=== PATIENT | female | born 1975 | race Caucasian/White ===

== ENCOUNTER 2019-11-21 07:05 | Outpatient (CLI) | payer BC, SELFPAY ==
[2019-11-21 07:34] LABS: Hemoglobin A1C 5.5 % (3.8-5.6)
[2019-11-21 08:02] LABS: Calculated LDL 129 mg/dL; Cholesterol 198 mg/dL (<200); HDL Cholesterol 48 mg/dL (40-60); Triglyceride 106 mg/dL (<150)
== END 2019-11-21 07:25 ==
PROVIDERS: PCP Nurse Practitioner; Visit Provider Nurse Practitioner
DX: Z13.1 Encounter for screening for diabetes mellitus (principal); Z13.6 Encounter for screening for cardiovascular disorders
CPT/HCPCS: 36415; 80061; 83036

== ENCOUNTER 2019-12-12 01:47 | Outpatient (CLI) | payer BC, SELFPAY ==
--- NOTE | 2019-12-12 07:45 | DI.MAMMO_ITS ---
EXAM: MG MAMMO SCREENING CLINICAL HISTORY: screening, Z12.39, FAMILY H/O BREAST CA TECHNIQUE: Bilateral full field digital CC and MLO mammographic images were obtained with 3D tomosyn thesis and utilizing computer aided detection (CAD). COMPARISON: Available for comparison. FINDINGS: Masses/Architectural Distortion: None seen. Microcalcifications: No suspicious pleomorphic-type are seen. Skin Thickening/Nipple Retraction: None. IMPRESSION: 1. No significant interval change with no specific features of malignancy noted. 2. Unless there is more urgent need, screening mammography is recommended, as per [employer] guidelines. ACR BI-RAD Category- 1 Negative Breast Density - Category C - Heterogeneously dense The mammogram demonstrates the patient's breast tissue is dense. Dense breast tissue is very common a nd is not abnormal but dense breast tissue can make it harder to find cancer on a mammogram. Also, de nse breast tissue may increase their breast cancer risk. This information about the result of the [facility] mogram report was provided to the patient to raise their awareness. Use this report when you speak wi th the patient about their risks for breast cancer, which includes their family history. At that time , you may recommend for more screening tests (Ultrasound or MRI) as they might be useful based on the ir risk. A negative radiographic report should not delay biopsy if a dominant or clinically suspicious mass is present. Up to ten percent of cancers are not identified on mammography. A negative report may reinforce clinical impression. Adenosis and dense breasts may obscure an underlying neoplasm. False positive reports average 6 to 10%. Patient will receive a letter notifying them of these results.
== END 2019-12-12 02:07 ==
PROVIDERS: PCP Nurse Practitioner; Visit Provider Nurse Practitioner
DX: Z12.31 Encounter for screening mammogram for malignant neoplasm of breast (principal); Z80.3 Family history of malignant neoplasm of breast
CPT/HCPCS: 77063; 77067

== ENCOUNTER 2020-11-19 10:29 | Outpatient (CLI) | payer BC, SELFPAY ==
[2020-11-21 10:29] LABS: COVID-19 RT-PCR Result Positive (Negative)
== END 2020-11-19 10:49 ==
PROVIDERS: PCP Nurse Practitioner; Visit Provider Nurse Practitioner
DX: Z20.822 Contact with and (suspected) exposure to COVID-19 (principal)
CPT/HCPCS: U0003

== ENCOUNTER 2021-03-29 14:43 | Outpatient (REF) | payer BC, SELFPAY ==
--- NOTE | 2021-03-29 13:45 | PAPFT_PTH ---
PATIENT: Jennifer Doty LOC: [facility] U#:[id number] AGE/SX: 45/F ROOM: RE03/29/[address]: Mckenzie Dsouza : 1975 BED: DIS: 03/29/2021 SPEC #: [id number] RECD: 03/29/21 17:32 STATUS: PATTI AMADA #: [id number] DAMARIS: 03/29/21 13:[address]: Mckenzie Dsouza DEPT: [facility] Cytology RECD BY: Mariluz Ramos ENTERED: 03/29/21 17:33 SP TYPE: PAPFT DESTINY DR: Nicole Gibbons, PhD PRE K SPECIAL EDUCATION TEACHER Tissues: 1 - CX/ENDOCX FOR PAP SMEARS Procedures: PAP THIN PREP/UVM Screening HPV DNA PROBE Comments: [id number]
--- NOTE | 2021-03-29 14:00 | ENDOMET_PTH ---
PATIENT: Jennifer Doty LOC: [facility] U#:[id number] AGE/SX: 45/F ROOM: RE03/29/[address]: Mckenzie Dsouza : 1975 BED: DIS: 03/29/2021 SPEC #: [id number] RECD: 03/29/21 16:23 STATUS: PATTI RESalo #: [id number] DAMARIS: 03/29/21 14:[address]: Mckenzie Dsouza DEPT: Surgical Specimen RECD BY: Mariluz Ramos ENTERED: 03/29/21 16:23 SP TYPE: Endomet OTHR DR: Nicole Gibbosn, PhD QUALITY AUDIT REPRESENTATIVE Tissues: 1 - ENDOMETRIUM BX/DEANN Procedures: GROSS AND MICRO LEVEL 4 Comments: [id number]
== END 2021-03-29 14:44 | disposition home or self-care (01) ==
LOC: LBN 14:43
PROVIDERS: PCP Nurse Practitioner; Visit Provider Obstetrics & Gynecology Gynecology
DX: N93.8 Other specified abnormal uterine and vaginal bleeding (principal); N85.8 Other specified noninflammatory disorders of uterus; Z12.4 Encounter for screening for malignant neoplasm of cervix; Z11.51 Encounter for screening for human papillomavirus (HPV); R87.618 Other abnormal cytological findings on specimens from cervix uteri
CPT/HCPCS: 88142; 88305; 87624

== ENCOUNTER 2021-04-04 03:37 | Outpatient (CLI) | payer BC, SELFPAY ==
--- NOTE | 2021-04-04 08:15 | DI.MAMMO_ITS ---
Exam(s) MAMMO SCREENING EXAM: MAMMO SCREENING CLINICAL HISTORY: screening,Z12.39 TECHNIQUE: Bilateral full field digital CC and MLO mammographic images were obtained with 3D tomosyn thesis and utilizing computer aided detection (CAD). COMPARISON: Available for comparison. FINDINGS: Masses/Architectural Distortion: There is an asymmetry in the inferior right breast on the MLO view w hich is more prominent compared to the prior examination. Microcalcifications: No suspicious pleomorphic-type are seen. Skin Thickening/Nipple Retraction: None. IMPRESSION: 1. Asymmetry in the inferior right breast on the MLO view. 2. This area should be further evaluated with spot compression view. Ultrasound may be indicated at that time. BI-RADS Category 0 - Assessment Incomplete: Need additional imaging evaluation Breast Density - Category C - Heterogeneously dense Breast density category C or D implies that the patient has dense breast tissue. Dense breast tissue is very common and is not abnormal but dense breast tissue can make it harder to find cancer on a ma mmogram. Also, dense breast tissue may increase their breast cancer risk. This information about the result of the mammogram report was provided to the patient to raise their awareness. Use this report when you speak with the patient about their risks for breast cancer, which includes their family hist ory. At that time, you may recommend for more screening tests (Ultrasound or MRI) as they might be us eful based on their risk. A negative radiographic report should not delay biopsy if a dominant or clinically suspicious mass is present. Up to ten percent of cancers are not identified on mammography. A negative report may reinforce clinical impression. Adenosis and dense breasts may obscure an underlying neoplasm. False positive reports average 6 to 10%. Patient will receive a letter notifying them of these results.
== END 2021-04-04 03:57 ==
PROVIDERS: PCP Nurse Practitioner; Visit Provider Nurse Practitioner
DX: Z12.31 Encounter for screening mammogram for malignant neoplasm of breast (principal); R92.8 Other abnormal and inconclusive findings on diagnostic imaging of breast
CPT/HCPCS: 77063; 77067

== ENCOUNTER 2021-04-20 01:32 | Outpatient (CLI) | payer BC, SELFPAY ==
--- NOTE | 2021-04-20 | DI.MAMMO_ITS ---
Exam(s) MG MAMMO SCREEN CALL BACK UNI EXAM: MG MAMMO SCREEN CALL BACK UNI-RIGHT CLINICAL HISTORY: F/U MAMMO, ASYMMETRY INFERIOR RT BREAST. TECHNIQUE: Unilateral spot mammographic images were obtained with 3D tomosynthesis and utilizing com puter aided detection (CAD). . Breast Ultrasound was also performed. COMPARISON: Prior mammograms were reviewed. This additional imaging was performed due to findings described on the recent screening mammogram of 04/04/2021. FINDINGS: Additional mammographic views performed todayrender this area non dissipating but somewhat less emeka rning. Ultrasound performed today reveals no significant findings. Please see that separate report. IMPRESSION: Benign findings. Appropriate follow-up is repeat right breast MAMMOGRAM in 6 months, with earlier imaging if a self de tected breast change is noted.. The patient was informed of these findings and recommendations prior to leaving the department today. BI-RADS Category 3 - 6 month - Probably Benign Finding: Recommend follow-up mammography in 6 months Breast Density - Category B - Scattered areas of fibroglandular density Breast density Category C or D implies that the patient has dense breast tissue. Dense breast tissue can make it harder to find cancer on a mammogram. Dense breast tissue is also associated with an incr eased risk of breast cancer. This information about the result of the mammogram report was provided to the patient to raise their awareness. Use this report when you speak with the patient about their risks for breast cancer, which includes their family history. At that time, you may recommend additional screening tests (Ultrasoun d or MRI) as these tests may add significant information. A negative radiographic report should not delay biopsy if a dominant or clinically suspicious mass is present. Up to ten percent of cancers are not identified on mammography. A negative report may reinforce clinical impression. Adenosis and dense breasts may obscure an underlying neoplasm. False positive reports average 6 to 10%. Patient will receive a letter notifying them of these results.
--- NOTE | 2021-04-20 | DI.US_ITS ---
Exam(s) US BREAST RT COMPLETE EXAM: US BREAST RT COMPLETE CLINICAL HISTORY: FU mammo. Rt breast complete per Dr. López. TECHNIQUE: Complete ultrasound of the RIGHT breast was performed including all 4 quadrants, the retr oareolar region, and the ipsilateral axilla. COMPARISON: Prior mammograms were reviewed. MOST RECENT MAMMOGRAM WAS 04/04/2020 FINDINGS: There is no evidence of solid or significant cystic lesions in all 4 quadrants of the right breast. This implies that the finding inferomedially on mammogram is most probably benign tissue. Some dense tissue is incidentally noted 10 o'clock position upper outer quadrant but no truly discern ible nodule or cyst at this level. No significant findings in the immediate retroareolar region. No adenopathy in the right axilla. IMPRESSION: Negative right breast ultrasound. This implies that the finding on the mammogram is most probably benign asymmetric tissue. Appropriate follow-up is repeat right breast MAMMOGRAM in 6 months. BI-RADS Category 3 - 6 month - Probably Benign Finding: Recommend follow-up mammography in 6 months Breast Density - Category B - Scattered areas of fibroglandular density Breast density Category C or D implies that the patient has dense breast tissue. Dense breast tissue can make it harder to find cancer on a mammogram. Dense breast tissue is also associated with an incr eased risk of breast cancer. This information about the result of the mammogram report was provided to the patient to raise their awareness. Use this report when you speak with the patient about their risks for breast cancer, which includes their family history. At that time, you may recommend additional screening tests (Ultrasoun d or MRI) as these tests may add significant information. A negative radiographic report should not delay biopsy if a dominant or clinically suspicious mass is present. Up to ten percent of cancers are not identified on mammography. A negative report may reinforce clinical impression. Adenosis and dense breasts may obscure an underlying neoplasm. False positive reports average 6 to 10%. Patient will receive a letter notifying them of these results.
== END 2021-04-20 01:52 ==
PROVIDERS: PCP Nurse Practitioner; Visit Provider Nurse Practitioner
DX: Z12.31 Encounter for screening mammogram for malignant neoplasm of breast (principal); R92.8 Other abnormal and inconclusive findings on diagnostic imaging of breast; N64.89 Other specified disorders of breast
CPT/HCPCS: 76642; 77063; 77067

== ENCOUNTER 2021-05-16 02:57 | Outpatient (CLI) | payer BC, SELFPAY ==
[2021-05-16 11:45] LABS: Source Nasal/Nares
[2021-05-16 14:20] LABS: COVID-19 PCR Negative (Negative)
== END 2021-05-16 02:58 | disposition home or self-care (01) ==
LOC: LBO 02:57
PROVIDERS: PCP Nurse Practitioner; Visit Provider Obstetrics & Gynecology Gynecology
DX: Z20.822 Contact with and (suspected) exposure to COVID-19 (principal); Z01.818 Encounter for other preprocedural examination
CPT/HCPCS: 87635

== ENCOUNTER 2021-05-16 03:27 | Outpatient (CLI) | payer BC, SELFPAY ==
[2021-05-16 09:16] LABS: HCT 37.8 % (36.0-46.0); HGB 12.6 g/dL (11.2-15.7); MCH 28.7 pg (27.0-33.0); MCHC 33.3 % (32.0-36.0); MCV 86.1 fL (80-95); MPV 10.5 fL (8.0-11.0); Platelet Count 221 10^3/uL (130-400); RBC 4.39 10^6/uL (3.93-5.22); RDW 14.2 % (11.7-14.6); RDW-SD 44.4 fL; WBC 6.87 10^3/uL (4.4-10.8)
[2021-05-16 09:25] LABS: Anion Gap 7.3 mmol/L (3-11); BUN 10 mg/dL (7-18); CO2 27.7 mmol/L (21.0-32.0); CREATININE 0.7 mg/dL (0.55-1.02); Calcium 8.3 mg/dL (8.5-10.1); Chloride 104 mmol/L (98-107); Glucose 115 mg/dL (74-106); Potassium 3.9 mmol/L (3.5-5.1); Sodium 139 mmol/L (136-145)
[2021-05-16 09:56] LABS: HCG Qual (Serum) Negative
== END 2021-05-16 03:28 | disposition home or self-care (01) ==
LOC: LBO 03:27
PROVIDERS: PCP Nurse Practitioner; Visit Provider Obstetrics & Gynecology Gynecology
DX: N92.0 Excessive and frequent menstruation with regular cycle (principal); Z01.818 Encounter for other preprocedural examination; Z01.812 Encounter for preprocedural laboratory examination
CPT/HCPCS: 36415; 80048; 85027; 86850; 86900; 86901; 84703

== ENCOUNTER 2021-05-18 06:47 | Day surgery (SDC) | payer BC, SELFPAY ==
[2021-05-18] VITALS (9 sets, daily range): BP systolic 137–160; BP diastolic 86–98; PULSE 72–86; RESP 12–29; TEMP 36.2–36.4; TEMPC 36.4; O2SAT 94–100; BMI 38.4
--- NOTE | 2021-05-18 07:13 | W.ANESPRE ---
General Info Date of Service Date Performed: 05/18/21 Height: 5 ft 4 in Weight: 101.605 kg Body Mass Index (BMI): 38.4 Surgical Procedure: Operation Date: 05/18/21 08:25 Proposed Procedures Side Surgeon p Endometrial Ablation hta Mckenzie Dsouza MD Meds Allergies and Home Medications Allergies Allergy/AdvReac Type Severity Reaction Status Date / Time lactose AdvReac GI issues Verified 05/18/21 06:53 Home Medication Medication Instructions Recorded multivitamin with iron [Hair 1 ea PO DAILY 05/04/17 Vitamin] Current Visit Medications: Current Medications Generic Name Dose Route Start Last Admin Trade Name Freq PRN Reason Stop Dose Admin Ringer's Solution 1,000 mls @ 125 mls/hr 05/18/21 06:00 IV 06/16/21 23:59 INFUSION BRADNON IV Miscellaneous Supplies 1 each 05/18/21 06:00 Iv Access IV 06/16/21 23:59 DIRECTED BRANDON Sodium Chloride 0 ml 05/18/21 06:00 Normal Saline Flush 10 Ml Syr IV 06/16/21 23:59 PRN PRN Sodium Chloride 0 ml 05/18/21 06:00 Normal Saline 10 Ml Vial IJ 06/16/21 23:59 DIRECTED PRN Sterile Water 0 ml 05/18/21 06:00 Water,Injection,Sterile 10 Ml Vial IJ 06/16/21 23:59 DIRECTED PRN PFSH Active Problems Active Problems: Problem Status Onset Code Screening for cardiovascular condition Z13.6 Screening for diabetes mellitus Z13.1 Excessive drinking alcohol F10.10 Right shoulder pain M25.511 Heavy menses N92.0 Abnormal mammogram R92.8 Medical History Medical History History of COVID-19 11/19/2020 Surgical History Surgical History Adenoidectomy age 9 section X 1 Tobacco Smoking/Tobacco Use Status: Never Passive smoking exposure: Yes Second hand exposure: Yes Alcohol Alcohol Intake: current Alcohol intake frequency: 0-2 drinks per day Alcohol type: beer, wine and hard liquor Substance Use Substance use: Rarely Substance use type: marijuana Vital Signs and Lab Results Vital Signs Most Recent Vital Signs in EMR: Most Recent Vital Signs Temp Pulse Resp BP Pulse Ox 36.4 C L 75 16 138/92 H 97 05/18/21 06:45 05/18/21 06:45 05/18/21 06:45 05/18/21 06:45 05/18/21 06:45 Lab Results Blood Type / Crossmatch: Patient ABO/Rh A Positive 05/16/21 08:52 05/16/21 Antibody Screen NEGATIVE 05/16/21 08:52 05/16/21 Complete Blood Count: White Blood Count 6.87 10^3/uL (4.4-10.8) 05/16/21 08:52 05/16/21 Red Blood Count 4.39 10^6/uL (3.93-5.22) 05/16/21 08:52 05/16/21 Hemoglobin 12.6 g/dL (11.2-15.7) 05/16/21 08:52 05/16/21 Hematocrit 37.8 % (36.0-46.0) 05/16/21 08:52 05/16/21 Platelet Count 221 10^3/uL (130-400) 05/16/21 08:52 05/16/21 Complete Metabolic Panel: Sodium Level 139 mmol/L (136-145) 05/16/21 08:52 05/16/21 Potassium Level 3.9 mmol/L (3.5-5.1) 05/16/21 08:52 05/16/21 Chloride Level 104 mmol/L (98-107) 05/16/21 08:52 05/16/21 Carbon Dioxide Level 27.7 mmol/L (21.0-32.0) 05/16/21 08:52 05/16/21 Blood Urea Nitrogen 10 mg/dL (7-18) 05/16/21 08:52 05/16/21 Creatinine 0.7 mg/dL (0.55-1.02) 05/16/21 08:52 05/16/21 Estimated GFR/1.73 m2 >= 60.00 (mL/min/1.73m2) 05/16/21 08:52 05/16/21 Calcium Level 8.3 mg/dL (8.5-10.1) L 05/16/21 08:52 05/16/21 Glucose Level 115 mg/dL (74-106) H 05/16/21 08:52 05/16/21 Liver Function Panel: No Data to Display Coagulation Panel: No Data to Display Cardiac Panel: No Data to Display Arterial Blood Gas: No Data to Display Venous Blood Gas: No Data to Display Pancreas Panel: No Data to Display Thyroid Panel: No Data to Display Infectious Disease: Coronavirus (COVID-19)(PCR) Negative (Negative) 05/16/21 09:44 05/16/21 Coronavirus 2019 Source Nasal/Nares 05/16/21 09:44 05/16/21 Blood Cultures: No Data to Display Toxicology Panel: No Data to Display Panel: Serum HCG, Qualitative Negative 05/16/21 08:52 05/16/21 Anesthesia Assessment and Plan Anesthesia History Personal History: No History of Anesthesia Complications Family History: No Family History of Anesthesia Complications Exercise Tolerance Exercise Tolerance: Metabolic Equivalents>4 Pertinent Negatives Pertinent Negatives: No Symptoms of GERD, No Major Cardiovascular Symptoms or Complaints, No Major Pulmonary Symptoms or Complaints and No History of CVA/TIA Cardiac & Pulmonary Exam Cardiac Exam: Normal S1/S2 Heart Sounds Pulmonary Exam: Clear Bilateral Breath Sounds Airway Exam Known Difficult Airway: No Mallampati Class: 1 Mouth Opening: Normal (> 3cm) Thyromental Distance: Greater than 3 cm Neck Range of Motion: Full ROM Neck Circumference: Normal Teeth Condition: Normal Dentition Airway Comments: #11 ?fake? ASA Classification ASA Score: ASA 2 Emergency Case?: No NPO Status NPO Status: NPO Clears >2 hours, Solids >8 hours Status Status: Negative HCG Anesthesia Plan Resuscitation Status: Full Code Anesthesia Technique: General Anesthesia Airway Planned: LMA Monitors Used: Standard Monitors
[2021-05-18] MEDS: Lactated Ringers 1,000 ML 125 ML IV (08:26)
[2021-05-18] MEDS: Bupivacaine 0.25% Pres-Free 30 ML VIAL (09:58)
--- NOTE | 2021-05-18 10:15 | ENDOMET_PTH ---
PATIENT: Jennifer Doty LOC: [facility] U#:[id number] AGE/SX: 45/F ROOM: RE05/18/[address]: Mckenzie Dsouza : 1975 BED: DIS: 05/18/2021 SPEC #: [id number] RECD: 05/18/21 13:03 STATUS: PATTI RESalo #: [id number] DAMARIS: 05/18/21 10:[address]: Mckenzie Dsouza DEPT: Surgical Specimen RECD BY: Mariluz Ramos ENTERED: 05/18/21 13:04 SP TYPE: Endomet OTHR DR: Niocle Gibbons, PhD HEARING AID CONSULTANT Tissues: 1 - ENDOMETRIUM BX/DEANN Procedures: GROSS AND MICRO LEVEL 4 Comments: [id number]
--- NOTE | 2021-05-18 10:43 | W.PM.DSUDISC ---
Discharge Plan Disposition Patient Disposition: HOME Condition: Fair Discharge Details Reason For Visit: Hydrothermal endometrial ablation Attending Provider: Mckenzie Dsouza Primary Care Provider: Nicole Gibbons Home Meds and New Rx's Prescriptions: No Action multivitamin with iron [Hair Vitamins] 1 EACH tablet 1 ea PO DAILY RF: 0 Discharge Instructions Additional Instructions: Follow up with Dr. Dsouza in the office in 2weeks. You will have a watery pink tinged vaginal discharge for the next several weeks. Ibuprofen 600mg every 6 hrs for pain if Acetaminophen is not effective controlling your pain. Nothing in your vagina until you see in 2 weeks. Stand Alone Forms: DSU Post Gynecology Surgery Activity:: Activity as Tolerated Diet:: As Tolerated Discharge Orders Discharge Orders: Discharge Order (Routine); Ordered 05/18/21 Ordered By: Mckenzie Dsouza DS: Diagnosis Discharge Diagnosis (1) Heavy menses: Status: Acute (2) History of endometrial ablation: Status: Acute
--- NOTE | 2021-05-18 10:49 | ROE_ITS ---
Date of service: 05/18/21 Time of Service: 10:49 Operative Note Operative Note DATE OF PROCEDURE: 05/18/21 PRE-OP DIAGNOSIS: abnormal uterine bleeding, menorrhagia. polypoid structures in endocervical canal. POST-OP DIAGNOSIS: same PROCEDURE: Hydrothermal endometrial ablation with Banjo curretage of upper endometrial canal. SURGEON: Mckenzie Dsouza ANESTHESIA TYPE: General LMA/ETT Refer to Anesthesia Record ESTIMATED BLOOD LOSS: 20 PATHOLOGY: other (curretings of endocervical canal) COMPLICATIONS: None Patient was transported to: PACU Patient's condition: stable Indications: 45 year old female with longstanding history of heavy regular menses that have interfered with her activities of daily living. Findings: Endocervical canal had two polypoid structures in close proximity to internal os. Otherwise not intracavitary filling defects. Tubal ostia visualized. Procedure Description: Patient was taken to the operating room where she was placed in the dorsal supine position and LMA general anesthesia was administered without difficulty. She was then placed in the dorsolithotomy position in yellowfin stirrups and prepped and draped in the usual sterile fashion. SCDs were in place. No antibiotics were required. After a surgical timeout was performed a bivalve speculum was placed in the patient's vagina. The anterior lip of the cervix was infiltrated with 1 cc 0.25% bupivacaine and a single-tooth tenaculum was used to grasp the anterior lip of the cervix. A paracervical block was performed with infiltration of 5 cc of 0.25% bupivacaine at the 4:00 and 6:00 paracervical spaces respectively. Cervix was then sequentially dilated to a maximum of 16 Jackson. And a hysteroscope sheath was inserted into the uterine cavity and a cavity assessment was performed with the above noted findings. The tip of the hysteroscope sheath was positioned to allow visualization of the uterine fundus, both tubal ostia in the midportion of the uterine cavity. The sheath was protected from the vaginal chambers by the vagina proximity to the speculum. Heated isotonic saline was then administered via gravity into the uterus through the sheath. Once a safety assessment was performed the treatment phase of the procedure began and under direct observation the uterine cavity was treated with heated isotonic saline at 90 ?C for 10 minutes. Intrauterine cool- down phase was performed for 1 minute. The uterine cavity was carefully assessed with hysteroscopy and was noted to have a satisfactory treatment effect and the integrity of the uterine cavity was confirmed. After these findings were confirmed the hysteroscope was removed followed by the single-tooth tenaculum. Tenaculum site was noted to be hemostatic. The speculum was removed and the patient placed in the dorsal supine position. She was successfully awakened from anesthesia and transported to day surgery unit in stable condition. All sponge lap needle counts correct x2.
--- NOTE | 2021-05-18 11:38 | W.ANESPOSTOP ---
Postoperative Evaluation Date, Time and Location Date Performed: 05/18/21 Time Performed: 11:38 Patient Location: Day Surgery Unit Vital Signs Most Recent Imported Vital Signs: Most Recent Vital Signs Temp Pulse Resp BP Pulse Ox 36.2 C L 78 16 139/98 H 99 05/18/21 11:29 05/18/21 11:29 05/18/21 11:29 05/18/21 11:29 05/18/21 11:29 Most Recent Manually Entered Vital Signs: Adult Blood Pressure: 137/94 Heart Rate: 72 Respirations: 12 Oxygen Saturation (%): 100 Temperature (C): 36.4 C Pain Score (0-10 Scale): 3 Pain Score Most Recent Pain Score: Most Recent Pain Score Pain Level 3 05/18/21 11:29 Assessment Mental Status: Awake (Alert & Oriented to Patient Baseline) Airway and Respiratory Function: Patent airway with normal (patient baseline) respiratory exam Cardiovascular Function: Hemodynamically Stable Hydration Status: Adequately Hydrated Nausea & Vomiting: No Nausea or Vomiting Pain: Pt. Denies Any Pain Peripheral Nerve Block: Patient did not receive a nerve block
== END 2021-05-18 12:40 | disposition home or self-care (01) ==
PROVIDERS: PCP Nurse Practitioner; Visit Provider Obstetrics & Gynecology Gynecology
PROC: (CPT 58353; principal; 2021-05-18 08:15)
DX: N92.0 Excessive and frequent menstruation with regular cycle (principal); N84.1 Polyp of cervix uteri
CPT/HCPCS: 58563; 57505; 81025; 88305; J0131; J1100; J1200; J1885; J2001; J2405

== ENCOUNTER 2021-10-20 02:46 | Outpatient (CLI) | payer BC, SELFPAY ==
--- NOTE | 2021-10-20 14:56 | DI.MAMMO_ITS ---
Exam(s) MAMMO DIAGNOSTIC UNI EXAM: MAMMO DIAGNOSTIC UNI CLINICAL HISTORY: 3-6 mo f/u,F/U ABNL MAMMO, R92.8.Z09 TECHNIQUE: Mammograms were interpreted according to the usual protocol including computer analysis w [facility] CAD system, tomosynthesis and C-view imaging. Additional spot compression mediolateral view of t he inferior right breast was performed. COMPARISON: 2014 through 20 April 2021 FINDINGS: The breasts are composed of scattered fibroglandular densities, Breast Density category B. Previously questioned area of asymmetry in the inferior right breast is less prominent on the current exam. Spot compression view shows no persistent mass. Findings are consistent with overlying fibro glandular tissue. No suspicious masses or suspicious microcalcifications are seen. No skin thickening or abnormal axillary lymph nodes are seen. There has been no significant change from prior exams. IMPRESSION: BI-RADS Category 1, Negative mammogram Yearly screening mammography is recommended. Breast Density - Category B, scattered fibroglandular densities. A negative radiographic report should not delay biopsy if a dominant or clinically suspicious mass is present. Up to ten percent of cancers are not identified on mammography. A negative report may reinforce clinical impression. Adenosis and dense breasts may obscure an underlying neoplasm. False positive reports average 6 to 10%. Patient will receive a letter notifying them of these results.
== END 2021-10-20 03:06 ==
PROVIDERS: PCP Nurse Practitioner; Visit Provider Nurse Practitioner
DX: R92.8 Other abnormal and inconclusive findings on diagnostic imaging of breast; N64.59 Other signs and symptoms in breast
CPT/HCPCS: 77061; 77065; G0279

== ENCOUNTER 2022-03-14 17:10 | Outpatient (REF) | payer OTHER, SELFPAY ==
[2022-03-16 11:21] LABS: COVID-19 RT-PCR UVMMC Result Negative (Negative)
== END 2022-03-14 17:11 | disposition home or self-care (01) ==
LOC: LBN 17:10
PROVIDERS: PCP Nurse Practitioner; Visit Provider Nurse Practitioner
DX: Z20.822 Contact with and (suspected) exposure to COVID-19 (principal)
CPT/HCPCS: U0003

== ENCOUNTER → 2022-04-28 00:55 | Outpatient (CLI) | payer OTHER, SELFPAY ==
--- NOTE | 2022-04-28 08:00 | DI.MAMMO_ITS ---
Exam(s) MAMMO SCREENING EXAM: MAMMO SCREENING CLINICAL HISTORY: screening,z12.39. TECHNIQUE: Bilateral full field digital CC and MLO mammographic images were obtained with 3D tomosyn thesis and utilizing computer aided detection (CAD). COMPARISON: Prior mammograms were reviewed, the most recent being March and September 2021.. Breast ultrasound March 2021 reviewed. This patient mother was diagnosed breast cancer FINDINGS: There has been no significant change in the appearance and distribution of the fibroglandular tissue. Previously described asymmetric tissue inferiorly in the right breast as seen on the MLO view appears unchanged. There are no new spiculated masses nor malignant appearing microcalcification groups. There is no significant architectural distortion nor skin thickening-retraction. IMPRESSION: No radiographic evidence of malignancy. BI-RADS Category 2 - Benign Findings Breast Density - Category B - Scattered areas of fibroglandular density Breast density Category C or D implies that the patient has dense breast tissue. Dense breast tissue can make it harder to find cancer on a mammogram. Dense breast tissue is also associated with an incr eased risk of breast cancer. This information about the result of the mammogram report was provided to the patient to raise their awareness. Use this report when you speak with the patient about their risks for breast cancer, which includes their family history. At that time, you may recommend additional screening tests (Ultrasoun d or MRI) as these tests may add significant information. A negative radiographic report should not delay biopsy if a dominant or clinically suspicious mass is present. Up to ten percent of cancers are not identified on mammography. A negative report may reinforce clinical impression. Adenosis and dense breasts may obscure an underlying neoplasm. False positive reports average 6 to 10%. Patient will receive a letter notifying them of these results.
== END ==
PROVIDERS: PCP Nurse Practitioner; Visit Provider Nurse Practitioner
DX: Z12.31 Encounter for screening mammogram for malignant neoplasm of breast (principal); R92.8 Other abnormal and inconclusive findings on diagnostic imaging of breast
CPT/HCPCS: 77063; 77067

== ENCOUNTER 2023-02-27 07:57 | Day surgery (SDC) | payer OTHER, SELFPAY ==
--- NOTE | 2023-02-26 18:52 | PDOC.DSDIS_ITS ---
Date of service: 02/27/23 Time of Service: 09:43 Discharge Plan Disposition Patient Disposition: Home Discharge Details Reason For Visit: colon cancer screennig Attending Provider: Brenda Rosado Primary Care Provider: Gisella Frank Home Meds and New Rx's Prescriptions: Continued multivitamin with iron [Hair Vitamins] 1 EACH tablet 1 ea PO DAILY Discontinued bisacodyl [Dulcolax (bisacodyl)] 5 mg tablet,delayed release (DR/EC) 5 mg PO ONCE Qty: 4 0RF Rx Instructions: Colonoscopy Bowel Prep- Per Instructions polyethylene glycol 3350 17 gram/dose powder 238 g PO ONCE Qty: 238 0RF Rx Instructions: Colonoscopy Bowel Prep- Per Instructions No Action multivitamin Capsule 1 cap PO DAILY Discharge Instructions Additional Instructions: DSU Colonoscopy Post- Op Instructions Instructions for Everyone who is given Anesthesia: For your safety, please do the following for the next twenty-four (24) hours: *Do Not operate a motor vehicle (car, truck, motorcycle, etc.) *Do Not drink alcoholic beverages or use any recreational drugs for the first 24 hours or while taking pain medications. The medications in your body may have a reaction that can be dangerous. *Do Not make any important decisions or sign any important papers. Findings: small polyps Follow up: -Office will send a letter in 2 to 3 weeks time with the pathology results on the polyp and when we want you to repeat the colonoscopy, most likely 5 to 7 yea rs. 1. No lifting over 20 pounds or strenuous activity for the first 24 hours after your procedure. After 24 hours there are no restrictions on your activity but you may feel fatigued for a few days. 2. After you arrive home you may have a light meal and return to your normal diet as you can tolerate it without feeling sick to your stomach. 3. You may have a bloated, gaseous feeling in your belly (abdomen) after a colonoscopy. Passing gas and belching will help. Walking or lying down on your left side with your knees flexed may relieve the discomfort. Call the office at [phone] (Office) or [phone] (Hospital) right away if you notice any of the following: a.Vomiting of blood or ?coffee ground stools?. b.Rectal bleeding 1Tbsp, blood clots or continuous bleeding. c.Severe belly (abdominal) pain. d.A hard distended belly (abdomen) and an inability to pass gas. 4. Please don?t expect to have a normal BM (bowel movement) for 2-3 days after your procedure. 5. If there are questions regarding the findings of your procedure, please contact your doctor 6. If you are unable to contact your doctor with a problem, contact the hospital at [phone]. 7. Continue all your regular medications unless directed otherwise. I understand the above instructions and have no questions. Signature of Patient or Adult Escort Name of Responsible Adult Escort Signature of Nurse Date/Time Stand Alone Forms: Radha Griffin (ROSALIA) Activity:: see above Diet:: see above Discharge Orders Discharge Orders: Discharge Order (Routine); Ordered 02/27/23 Ordered By: Brenda Rosado DS: Diagnosis Discharge Diagnosis (1) Screening for malignant neoplasm of colon performed: Status: Acute Asessment and Plan: The patient is seen and examined after their colonoscopy.? The patient has been able to pass gas.? They are not having abdominal pain.? They have been able to tolerate liquids and a snack.? They do not have any nausea or vomiting.? They are not having any chest pain or shortness of breath.??? They are not having any rectal bleeding..? Their vital signs have been stable-see nursing notes. We discussed findings during their colonoscopy, and any biopsies that were done/polyps that were removed. The patient will be sent a letter with any biopsy results, and when to repeat the colonoscopy.-see discharge instructions. Patient was given explicit instructions to follow-up regarding colonoscopy-refer to discharge instructions.? We reviewed resumption of medications. Patient verbalized understanding and discharged in stable and satisfactory condition- See nursing notes.
[2023-02-27 08:15] VITALS: BP 149/103; PULSE 75; RESP 16; TEMP 36.1; O2SAT 98
--- NOTE | 2023-02-27 08:29 | ANES.PREOP_ITS ---
General Info Date of Service Date Performed: 02/27/23 Height: 5 ft 3 in Weight: 97.7 kg Body Mass Index (BMI): 38.1 Surgical Procedure: Operation Date: 02/27/23 09:05 Proposed Procedure Side Surgeon lisbeth Rosado, Meds Allergies and Home Medications Allergies Allergy/AdvReac Type Severity Reaction Status Date / Time lactose AdvReac GI issues Verified 02/27/23 08:23 Home Medication Medication Instructions Recorded multivitamin with iron (Hair 1 ea PO DAILY 05/04/17 Vitamins tablet) multivitamin 1 cap PO DAILY 02/27/23 Current Visit Medications: Current Medications Generic Name Dose Route Start Last Admin Trade Name Freq PRN Reason Stop Dose Admin Hyoscyamine Sulfate 0.125 mg 02/27/23 09:49 Hyoscyamine 0.125 Mg Sl/Oral/Chew SL DIRECTED PRN Ringer's Solution 1,000 mls @ 80 mls/hr 02/27/23 06:00 IV 03/28/23 23:59 INFUSION [facility] IV Miscellaneous Supplies 1 each 02/27/23 06:00 Iv Access IV 03/28/23 23:59 DIRECTED BRANDON Ondansetron HCl 4 mg 02/27/23 09:49 Ondansetron 4 Mg/2 Ml Vial IVP Q4H PRN PRN Nausea / Vomiting Sodium Chloride 0 ml 02/27/23 06:00 Normal Saline Flush 10 Ml Syr IV 03/28/23 23:59 PRN PRN Sodium Chloride 0 ml 02/27/23 06:00 Normal Saline 10 Ml Vial IJ 03/28/23 23:59 DIRECTED PRN Sterile Water 0 ml 02/27/23 06:00 Water,Injection,Sterile 10 Ml Vial IJ 03/28/23 23:59 DIRECTED PRN PFSH Active Problems Active Problems: Problem Status Onset Code Screening for malignant neoplasm of colon performed Z12.11 Abnormal mammogram R92.8 Medical History Medical History Excessive drinking alcohol Heavy menses History of abnormal uterine bleeding History of COVID-19 11/19/2020 Surgical History Surgical History Adenoidectomy age 9 section X 1 History of endometrial ablation 05/18/21 HTA. Tobacco Smoking/Tobacco Use Status: Former Tobacco Use Passive smoking exposure: Yes Second hand exposure: Yes Alcohol Alcohol Intake: current Alcohol intake frequency: 0-2 drinks per day Alcohol type: beer, wine and hard liquor Substance Use Substance use: Occasionally Substance use type: marijuana Details: alcohol last use on 02/25/23 2 beers, 2 glasses of wine THC edible use in past, no use in last 6 months Vital Signs and Lab Results Vital Signs Most Recent Vital Signs in EMR: Most Recent Vital Signs Temp Pulse Resp BP Pulse Ox 36.1 C L 75 16 149/103 H 98 02/27/23 08:15 02/27/23 08:15 02/27/23 08:15 02/27/23 08:15 02/27/23 08:15 Lab Results Blood Type / Crossmatch: No Data to Display Complete Blood Count: No Data to Display Complete Metabolic Panel: No Data to Display Liver Function Panel: No Data to Display Coagulation Panel: No Data to Display Cardiac Panel: No Data to Display Arterial Blood Gas: No Data to Display Venous Blood Gas: No Data to Display Pancreas Panel: No Data to Display Thyroid Panel: No Data to Display Infectious Disease: No Data to Display Blood Cultures: No Data to Display Toxicology Panel: No Data to Display Panel: No Data to Display Anesthesia Assessment and Plan Anesthesia History Personal History: No History of Anesthesia Complications Family History: No Family History of Anesthesia Complications Exercise Tolerance Exercise Tolerance: Metabolic Equivalents>4 Pertinent Negatives Pertinent Negatives: No Major Cardiovascular Symptoms or Complaints, No Major Pulmonary Symptoms or Complaints and No History of CVA/TIA Cardiac & Pulmonary Exam Cardiac Exam: Normal S1/S2 Heart Sounds Pulmonary Exam: Clear Bilateral Breath Sounds Implantable Cardiac Device Does patient have a Pacemaker or an ICD?: No Airway Exam Known Difficult Airway: No Mallampati Class: 1 Mouth Opening: Normal (> 3cm) Thyromental Distance: Greater than 3 cm Neck Range of Motion: Full ROM Neck Circumference: Normal Teeth Condition: Normal Dentition Airway Comments: #11 ?fake? ASA Classification ASA Score: ASA 2 Emergency Case?: No NPO Status NPO Status: NPO Clears >2 hours, Solids >8 hours Status Status: Negative HCG Anesthesia Plan Resuscitation Status: Full Code Anesthesia Technique: General Anesthesia Airway Planned: Natural Airway Monitors Used: Standard Monitors
[2023-02-27] MEDS: Lactated Ringers 1,000 ML 80 ML IV (08:35)
[2023-02-27 08:54] VITALS: BMI 38.1
--- NOTE | 2023-02-27 09:13 | BOWEL_PTH ---
PATIENT: Jennifer Doty LOC: [facility] U#:[id number] AGE/SX: 47/F ROOM: RE02/27/[address]: Brenda Rosado : 1975 BED: DIS: 02/27/2023 SPEC #: [id number] RECD: 02/27/23 12:19 STATUS: PATTI RE #: [id number] DAMARIS: 02/27/23 09:[address]: Brenda Rosado DEPT: Surgical Specimen RECD BY: Mariluz Ramos ENTERED: 02/27/23 12:19 SP TYPE: Bowel OTHR DR: Gisella Frank, FUR GLAZER Tissues: 1 - BIOPSY BOWEL Procedures: GROSS AND MICRO LEVEL 4 Comments: [id number]
[2023-02-27 09:31] VITALS: BP 127/80; PULSE 71; RESP 16; TEMP 36.4; O2SAT 98
--- NOTE | 2023-02-27 09:40 | W.COLOREPORT ---
Date of service: 02/27/23 Time of Service: 09:30 Colonoscopy Report Date of procedure: 02/27/23 Pre-op diagnosis general: Second-degree family member with a history of colorectal cancer x1 Post-op diagnosis procedure note: other (Small polyp) Surgeon: Brenda Rosado Anesthesia Type: General:No Airway Estimated blood loss (mL): 1 Pathology: other Complications: None Disposition: same day Prep: Miralax/Dulcolax Retraction Time: 13 Procedure Description: After informed consent was obtained the patient was taken to the procedure room and placed in a left decubitous position. Monitors were applied and a time out was done. The patients name, date of , procedure, allergies to medications and metal in their body was reviewed. The patient was then sedated. Once sedated and comfortable a rectal exam was done. External exam was normal. Internal exam revealed a normal sphincter tone and no palpable masses. The scope was then introduced and retrofelexed. No internal hemorrhoids were identified. The scope was then advanced to the cecum w/out difficulty. The TI and appendiceal orifice were identified. The prep was BBPS 3 in all segments for total of 9. The scope was then slowly retracted over 13 minutes back into the rectum. A Polyp was removed at 80 cm. It was a 5 mm flat polyp that is removed with cold biopsy forcep. The mucosa is otherwise pink and healthy with a normal vascular pattern. There are no AVMs or diverticula visualized today. The scope was removed and the patient was woken up and taken back to Same day surgery in stable condition. The patient tolerated the procedure well and there were no immediate complications. Follow up: The patient should follow up in 5-7 years unless they develop changes in bowel habits or other new gastrointestinal complaints.
[2023-02-27 09:55] VITALS: BP 135/83; PULSE 68; RESP 16; TEMP 36.6; O2SAT 99
--- NOTE | 2023-02-27 10:18 | W.ANESPOSTOP ---
Postoperative Evaluation Date, Time and Location Date Performed: 02/27/23 Time Performed: 10:18 Patient Location: Day Surgery Unit Vital Signs Most Recent Imported Vital Signs: Most Recent Vital Signs Temp Pulse Resp BP Pulse Ox 36.6 C 68 16 135/83 99 02/27/23 09:55 02/27/23 09:55 02/27/23 09:55 02/27/23 09:55 02/27/23 09:55 Pain Score Most Recent Pain Score: Most Recent Pain Score Pain Level 0 02/27/23 09:55 Assessment Mental Status: Awake (Alert & Oriented to Patient Baseline) Airway and Respiratory Function: Patent airway with normal (patient baseline) respiratory exam Cardiovascular Function: Hemodynamically Stable Hydration Status: Adequately Hydrated Nausea & Vomiting: No Nausea or Vomiting Pain: Pt. Denies Any Pain Peripheral Nerve Block: Patient did not receive a nerve block
== END 2023-02-27 10:18 | disposition home or self-care (01) ==
PROVIDERS: PCP Nurse Practitioner Family; Visit Provider Surgery
PROC: 0DJD8ZZ Inspection of Lower Intestinal Tract, Via Natural or Artificial Opening Endoscopic (ICD-10-PCS; CPT 45378; principal; 2023-02-27 09:00)
DX: Z12.11 Encounter for screening for malignant neoplasm of colon (principal); Z80.0 Family history of malignant neoplasm of digestive organs; K63.5 Polyp of colon
CPT/HCPCS: 45380; 88305; J2405

== ENCOUNTER 2023-03-27 03:55 | Outpatient (CLI) | payer OTHER, SELFPAY ==
[2023-03-27 12:59] LABS: HCT 38.1 % (36.0-46.0); HGB 13.5 g/dL (11.2-15.7); MCH 31.5 pg (27.0-33.0); MCHC 35.4 % (32.0-36.0); MCV 89 fL (80-95); MPV 9.8 fL (8.0-11.0); Platelet Count 173 10^3/uL (130-400); RBC 4.28 10^6/uL (3.93-5.22); RDW-SD 42.8 fL; WBC 8.88 10^3/uL (4.4-10.8)
[2023-03-27 13:53] LABS: Anion Gap 7.4 mmol/L (3-11); BUN 11 mg/dL (7-18); CO2 26.6 mmol/L (21.0-32.0); CREATININE 0.8 mg/dL (0.55-1.02); Calcium 8.5 mg/dL (8.5-10.1); Calculated LDL 141 mg/dL (<100); Chloride 103 mmol/L (98-107); Cholesterol 217 mg/dL (<200); Estimated GFR 90.83 (mL/min/1.73m2); Glucose 92 mg/dL (74-106); HDL Cholesterol 49 mg/dL (40-60); Potassium 3.4 mmol/L (3.5-5.1); Sodium 137 mmol/L (136-145); TSH (W/Ref FT4) 1.41 uIU/mL (0.36-3.74); Triglyceride 135 mg/dL (<150)
== END 2023-03-27 03:56 | disposition home or self-care (01) ==
LOC: LBO 03:55
PROVIDERS: PCP Nurse Practitioner Family; Visit Provider Nurse Practitioner Family
DX: F10.10 Alcohol abuse, uncomplicated (principal); N92.0 Excessive and frequent menstruation with regular cycle; Z00.00 Encounter for general adult medical examination without abnormal findings; Z98.890 Other specified postprocedural states
CPT/HCPCS: 36415; 80048; 80061; 85027; 83036; 84443

== ENCOUNTER 2023-05-02 01:53 | Outpatient (CLI) | payer OTHER, SELFPAY ==
--- NOTE | 2023-05-02 08:00 | DI.MAMMO_ITS ---
Exam(s) MAMMO SCREENING EXAM: MAMMO SCREENING CLINICAL HISTORY: screening, Z12.39 TECHNIQUE: Mammograms were interpreted according to the usual protocol including computer analysis w [employer] CAD system, tomosynthesis and C-view imaging. COMPARISON: 2016 through 2021 FINDINGS: The breasts are composed of scattered fibroglandular densities, Breast Density category B. No suspicious masses or suspicious microcalcifications are seen. No skin thickening or abnormal axillary lymph nodes are seen. There has been no significant change from prior exams. IMPRESSION: BI-RADS Category 1, Negative mammogram Yearly screening mammography is recommended. Breast Density - Category B, scattered fibroglandular densities. A negative radiographic report should not delay biopsy if a dominant or clinically suspicious mass is present. Up to ten percent of cancers are not identified on mammography. A negative report may reinforce clinical impression. Adenosis and dense breasts may obscure an underlying neoplasm. False positive reports average 6 to 10%. Patient will receive a letter notifying them of these results.
== END 2023-05-02 02:13 ==
LOC: DI 01:53
PROVIDERS: PCP Nurse Practitioner Family; Visit Provider Nurse Practitioner Family
DX: Z12.31 Encounter for screening mammogram for malignant neoplasm of breast (principal)
CPT/HCPCS: 77063; 77067

== ENCOUNTER 2023-09-12 13:01 | Outpatient (CLI) | payer OTHER, SELFPAY ==
[2023-09-13 09:59] LABS: Lyme Ab w Rflx to Lyme Confirm Negative (Negative)
[2023-09-14 19:31] LABS: Anaplasma phagocytophilum Negative (Negative); B. miyamotoi PCR Negative (Negative); Babesia divergens/MO-1 Negative (Negative); Babesia duncani Negative (Negative); Babesia microti Negative (Negative); Ehrlichia chaffeensis Negative (Negative); Ehrlichia ewingii/canis Negative (Negative); Ehrlichia muris eauclairensis Negative (Negative)
== END 2023-09-12 13:02 | disposition home or self-care (01) ==
LOC: LBO 13:01
PROVIDERS: PCP Nurse Practitioner Family; Visit Provider Nurse Practitioner Family
DX: W57.XXXA Bitten or stung by nonvenomous insect and other nonvenomous arthropods, initial encounter (principal); T14.8XXA Other injury of unspecified body region, initial encounter
CPT/HCPCS: 36415; 87798; 86618

== ENCOUNTER → 2024-05-05 02:47 | Outpatient (CLI) | payer OTHER, SELFPAY ==
--- NOTE | 2024-05-05 07:45 | DI.MAMMO_ITS ---
Exam(s) MAMMO SCREENING EXAM: MAMMO SCREENING CLINICAL HISTORY: screening,Z12.39 TECHNIQUE: Mammograms were interpreted according to the usual protocol including computer analysis w [employer] CAD system, tomosynthesis and C-view imaging. COMPARISON: 2016 through 2022 FINDINGS: The breasts are composed of scattered fibroglandular densities, Breast Density category B. No suspicious masses or suspicious microcalcifications are seen. No skin thickening or abnormal axillary lymph nodes are seen. There has been no significant change from prior exams. IMPRESSION: BI-RADS Category 1, Negative mammogram Yearly screening mammography is recommended. Breast Density - Category B, scattered fibroglandular densities. A negative radiographic report should not delay biopsy if a dominant or clinically suspicious mass is present. Up to ten percent of cancers are not identified on mammography. A negative report may reinforce clinical impression. Adenosis and dense breasts may obscure an underlying neoplasm. False positive reports average 6 to 10%. Patient will receive a letter notifying them of these results.
== END ==
PROVIDERS: PCP Nurse Practitioner Family; Visit Provider Nurse Practitioner Family
DX: Z12.31 Encounter for screening mammogram for malignant neoplasm of breast (principal)
CPT/HCPCS: 77063; 77067

== ENCOUNTER 2025-03-27 00:57 | Outpatient (CLI) | payer OTHER, SELFPAY ==
[2025-03-27 09:33] LABS: ALT 39 U/L (14-59); AST 29 U/L (15-37); Albumin 3.5 g/dL (3.4-5.0); Alkaline Phosphatase 81 U/L (46-116); Anion Gap 10.2 mmol/L (3-11); BUN 14 mg/dL (7-18); Bilirubin, Total 0.4 mg/dL (0.2-1.0); CO2 25.8 mmol/L (21.0-32.0); CREATININE 0.7 mg/dL (0.55-1.02); Calcium 8.9 mg/dL (8.5-10.1); Calculated LDL 131 mg/dL (<100); Chloride 103 mmol/L (98-107); Cholesterol 203 mg/dL (<200); Glucose 123 mg/dL (74-106); HDL Cholesterol 46 mg/dL (>or=50); Potassium 4.2 mmol/L (3.5-5.1); Sodium 139 mmol/L (136-145); Total Protein 7.4 g/dL (6.4-8.2); Triglyceride 133 mg/dL (<150)
== END 2025-03-27 00:58 | disposition home or self-care (01) ==
LOC: LBO 00:57
PROVIDERS: PCP Nurse Practitioner Family; Visit Provider Nurse Practitioner Family
DX: I10 Essential (primary) hypertension (principal); Z00.00 Encounter for general adult medical examination without abnormal findings
CPT/HCPCS: 36415; 80053; 80061

== ENCOUNTER 2025-05-07 01:25 | Outpatient (CLI) | payer OTHER, SELFPAY ==
--- NOTE | 2025-05-07 15:05 | DI.MAMMO_ITS ---
Exam(s) MAMMO SCREENING EXAM: MAMMO SCREENING CLINICAL HISTORY: screening,Z12.39. TECHNIQUE: Bilateral full field digital CC and MLO mammographic images were obtained with 3D tomosynthesis and utilizing computer aided detection (CAD). COMPARISON: Prior mammograms dating back to 2006 were reviewed. FINDINGS: There has been no significant change in the appearance and distribution of the fibroglandular tissue. Asymmetric tissue in both breasts is unchanged mammograms. There benign-appearing microcalcifications again noted. There are no new spiculated masses nor malignant appearing microcalcification groups. There is no significant architectural distortion nor skin thickening-retraction. IMPRESSION: Overlying findings. No radiographic evidence of malignancy. BI-RADS Category 2 - Benign Findings Breast Density - Category C - The breast are heterogeneously dense, which may obscure small masses. Breast density Category C or D implies that the patient has dense breast tissue. Dense breast tissue can make it harder to find cancer on a mammogram. Dense breast tissue is also associated with an increased risk of breast cancer. This information about the result of the mammogram report was provided to the patient to raise their awareness. Use this report when you speak with the patient about their risks for breast cancer, which includes their family history. At that time, you may recommend additional screening tests (Ultrasound or MRI) as these tests may add significant information. A negative radiographic report should not delay biopsy if a dominant or clinically suspicious mass is present. Up to ten percent of cancers are not identified on mammography. A negative report may reinforce clinical impression. Adenosis and dense breasts may obscure an underlying neoplasm. False positive reports average 6 to 10%. Patient will receive a letter notifying them of these results.
== END 2025-05-07 01:45 ==
LOC: DI 01:25
PROVIDERS: PCP Nurse Practitioner Family; Visit Provider Nurse Practitioner Family
DX: Z12.31 Encounter for screening mammogram for malignant neoplasm of breast (principal); R92.333 Mammographic heterogeneous density, bilateral breasts
CPT/HCPCS: 77063; 77067